=== PATIENT | male | born 1960 | race African-American/Black ===

== ENCOUNTER 2017-04-14 15:59 | Emergency (ER) | payer SELFPAY ==
[~2017-04-14] VITALS: Ht 172.7 cm; Wt 89.8 kg
--- NOTE | 2017-04-14 16:00 | NUR ---
PATIENT BIB [facility] C/O NAUSEA AND VOMITING ON BUS. PATIENT IS A/OX 4. BREATHING EVEN AND UNLABORED. NO SOB. VITALS STABLE. SAFETY AND COMFORT MEASURES IN PLACE. AWAITING MD ORDERS.
--- NOTE | 2017-04-14 16:15 | NUR ---
IV STARTED ON LAC, 20 G, BLOOD DRAWN AND SENT TO LAB.
[2017-04-14] MEDS ORDERED: ONDANSETRON HCL/PF 4 MG/2 ML VIAL ONE (16:23)
[2017-04-14] MEDS ORDERED: ONDANSETRON HCL/PF - ER 4 MG/2 ML VIAL IV ONE (16:30)
[2017-04-14] MEDS ORDERED: IV NS 0.9% 1,000 ML BAG IV ONE (16:30)
[2017-04-14 16:31] LABS: BASOPHILS # (AUTO) 0.4 /CMM (0.0-0.2); BASOPHILS % (AUTO) 3.1 % (0.0-2.0); EOSINOPHILS % (AUTO) 0.2 % (0.0-6.0); HEMATOCRIT 50 % (39-51); HEMOGLOBIN 16.1 g/dL (13.5-17.5); LYMPHOCYTES # (AUTO) 2.3 /CMM (0.8-4.8); LYMPHOCYTES % (AUTO) 19.4 % (20.0-44.0); MEAN CORPUSCULAR HEMOGLOBIN 28 PG (26.0-33.0); MEAN CORPUSCULAR HGB CONC 33 g/dl (31.0-36.0); MEAN CORPUSCULAR VOLUME 86 fL (80-96); MONOCYTES # (AUTO) 0.9 /CMM (0.1-1.30); MONOCYTES % (AUTO) 7.4 % (2.0-12.0); NEUTROPHILS # (AUTO) 8.4 /CMM (1.8-8.9); NEUTROPHILS % (AUTO) 69.9 % (43.0-81.0); PLATELET COUNT (AUTO) 380 /CMM (150-450); RDW COEFFICIENT OF VARIATION 13.3 (11.5-15.0); RED BLOOD CELL COUNT(AUTO) 5.77 MIL/uL (4.5-6.0)
[2017-04-14 16:46] LABS: ALBUMIN 4.7 g/dL (3.4-5.0); BILIRUBIN,DIRECT 0.2 mg/dL (0.0-0.2); BILIRUBIN,TOTAL 0.8 mg/dL (0.2-1.0); CALCIUM, SERUM 10.1 mg/dL (8.5-10.1); CREATININE 2.9 mg/dL (0.6-1.3); POTASSIUM 3.2 mmol/L (3.5-5.1); TOTAL PROTEIN, SERUM 8.5 g/dL (6.4-8.2)
[2017-04-14] MEDS ORDERED: ASPIRIN 81 MG TAB.CHEW ONE (17:29)
[2017-04-14] MEDS ORDERED: ASPIRIN 81 MG TAB.CHEW PO ONE (17:30)
--- NOTE | 2017-04-14 18:30 | NUR ---
PATIENT STATING HE FEELS FINE TO GO HOME. PER DR. BATRES, PATIEN NEEDS TO BE ADMITTED, BUT PATIENT IS REFUSING. PATIENT AGREED TO SIGN AMA FORM AND GO HOME. BLOOD PRESSURE ELEVATED, PATIENT IS TACHYCARIDIC. HOWEVER, NO SOB, NO CHEST PAIN. Patient left home AMA, WRITTEN AND VERBAL AFTER CARE INSTUCTIONS GIVEN, INCLUDING NEED TO FOLLOW UP WITH PRIMARY MD. PATIENT VERBALIZES UNDERSTANDING.
[2017-04-14 18:39] VITALS: BP 180/111
== END 2017-04-14 18:40 | disposition left against medical advice (07) ==
LOC: ER 16:03
DX: N17.9 Acute kidney failure, unspecified (principal); R11.2 Nausea with vomiting, unspecified; E87.6 Hypokalemia; D72.829 Elevated white blood cell count, unspecified; R79.89 Other specified abnormal findings of blood chemistry
CPT/HCPCS: 36415; 80048; 80076; 83690; 84484; 85025; 93005; 96361; 96374; 99285; A4606; J2405 ×4; J7030 ×3; Z7610